=== PATIENT | female | born 1950 | race Caucasian/White ===

== ENCOUNTER 2024-02-18 20:25 | Emergency (ER) | payer MEDICARE, MEDICAID, SELFPAY ==
[2024-02-18 21:01] VITALS: BP 141/71; PULSE 97; RESP 18; TEMP 36.9; O2SAT 97; BMI 23.3
--- NOTE | 2024-02-18 21:31 | ED_ITS ---
<Statement entered by Julia Solo DO - 02/18/24 23:18> I was consulted by the EMILY, and we discussed the complexity of the problems being addressed. I approved the treatment and management plan for this patient's care in the emergency department, thus performing a substantive portion of the medical decision making. On my assessment of the patient, she has minimal redness and warmth to her dorsal aspect of her foot. No concerns for septic arthritis with normal intact range of motion of her right ankle. She is neurovascularly intact in the foot is warm well-perfused. No blistering or abscess. Overall I feel she has a lower cellulitis given reassuring clinical exam and lack of systemic symptoms. Given this, deemed to be appropriate for discharge home with oral antibiotics. Strict return precautions were given as well as instructions for close outpatient follow-up. Julia Solo DO Discharge Plan Disposition Patient Disposition: Home, Self-Care Condition: Good Prescriptions Prescriptions: New cephalexin 500 mg tablet 500 mg PO BID 7 Days Qty: 14 0RF clindamycin HCl 300 mg capsule 300 mg PO BID Qty: 20 0RF Referrals Follow up/Referrals: Provider,Referral, MD [Primary Care Provider] - See instructions Activity Restrictions/Add. Instructions Additional Instructions/Restrictions: Monitor for worsening of symptoms Antibiotics as ordered Follow-up with podiatry or PCP If symptoms worsen or do not improve return Clinical Impressions Clinical Impression: Cellulitis Instructions Patient Instructions: Cellulitis Print Language Print Language: Chadian Discharge ED Provider: Julia Solo General Adult HPI General Chief complaint: PAIN Stated complaint: back pain, no accident Time Seen by Provider: 02/18/24 21:04 Mode of Arrival: Ambulatory Source of Information: Patient Limitations: No Limitations Description of Symptoms (Recalled from ER Triage Doc. by RN): pt reports right foot pain that has been going on for 1 week but becam unbearably worse tonight. pt reports no injury. pt reports she is diabetic but does not take her insulin History of Present Illness HPI narrative: 73-year-old female presents for right foot pain this been going on for over a week but getting worse tonight. Patient states pain is worse when she is up walking around. Patient states she has no injury but the foot did start hurting worse after she was walking a lot while looking at [place] lights. Patient denies fever Related Data Previous Rx's ?Medication ?Instructions ?Recorded cephalexin 500 mg tablet 500 mg PO BID 7 days #14 tabs 02/18/24 clindamycin HCl 300 mg capsule 300 mg PO BID #20 caps 02/18/24 Allergies Allergy/AdvReac Type Severity Reaction Status Date / Time Sulfa (Sulfonamide Allergy Unknown Verified 02/18/24 21:21 Antibiotics) allergy reaction [facility] Disclaimer: The information contained in this section may have been updated after the patient was seen, as this information can be updated by other users. Social History , SC[employer]) Smoking Status: Current every day smoker alcohol intake: never current occupational status: retired Travel in the last 8 weeks: None ROS Obtained: Yes Systems reviewed as appropriate & no additional complaints except as documented Physical Exam General General appearance: alert and in no apparent distress ENT ENT exam: Present normal exam Respiratory Respiratory exam: Present normal lung sounds bilaterally Cardiovascular Cardiovascular exam: Present regular rate and normal rhythm Expanded Lower Extremity Exam Right: Foot/toe exam: Present erythema Top foot image: 2 1. Redness, warmth 2. Redness, warmth Neurovascular/Tendon exam: Present normal capillary refill and other (Pulses intact palpable) Neurological Exam Neurological exam: Present alert and oriented X3 Skin Skin exam: Present warm and erythema Medical Decision Making Medical Records Medical records reviewed: Yes I reviewed the patient's medical records. Screening: Per USPSTF and CDC recommendations, given the prevalence of disease in our region, it is our hospital?s policy to screen for HIV and viral Hepatitis for all patients aged 18 and over and those with ongoing risk factors. [place] Inquiry Pt receiving controlled substance: No Vital Signs: 02/18/24 21:01 Temperature 98.5 F Temperature Source Oral Pulse Rate [Right] 97 H Respiratory Rate 18 Blood Pressure [Right Arm] 141/71 H Blood Pressure Mean [Right Arm] 94 02 Sat by Pulse Oximetry 97 Oxygen Delivery Method Room Air Orders (Tests/Meds): ED MEDICATIONS Generic Name Dose Route Start Last Admin Trade Name Freq PRN Reason Stop Dose Admin Cephalexin HCl 500 mg 02/18/24 21:25 Cephalexin 500mg Capsule PO 02/18/24 21:26 ONCE ONE Minocycline HCl 100 mg 02/18/24 21:28 Minocycline Hcl 100mg Capsule PO 02/18/24 21:29 ONCE ONE Medical Decision Narrative: In summary patient is a 73-year-old female who presents to the emergency department for evaluation of right foot pain this been going on for over a week but getting worse tonight. Patient states pain is worse when she is up walking around. Patient states she has no injury but the foot did start hurting worse after she was walking a lot while looking at [place] lights. Patient denies fever Patient is hemodynamically stable upon arrival, afebrile. Right ankle red and warmth noted pulses intact. Differential diagnosis includes cellulitis, gout. Upon evaluation patient has no fever, pulses palpable, cap refill within normal. Given this patient was appropriate for discharge at this time will discharge home with prescription of Keflex and clindamycin and to follow-up with her podiatry or primary care. I considered labs but based on patient's assessment will defer at this time Critical Care Critical Care Time Critical Care Time: No
[2024-02-18] MEDS: cephALEXin 500MG CAPSULE 500 MG PO (21:33)
[2024-02-18] MEDS: CLINDAMYCIN 150MG CAPSULE 300 MG PO (21:36)
[2024-02-18 21:47] VITALS: BP 113/89; PULSE 80; RESP 16; TEMP 36.9; O2SAT 94
== END 2024-02-18 21:54 | disposition home or self-care (01) ==
PROVIDERS: Emergency Provider Emergency Medicine
DX: L03.90 Cellulitis, unspecified (principal); M79.671 Pain in right foot
CPT/HCPCS: 99283